=== PATIENT | male | born 1940 | race Caucasian/White ===

== ENCOUNTER 2017-03-07 15:41 | Emergency (ER) | payer MEDICARE, OTHER ==
[~2017-03-07] VITALS: Ht 182.9 cm; Wt 106.6 kg
[2017-03-07 19:24] VITALS: BP 159/81
== END 2017-03-07 19:40 | disposition home or self-care (01) ==
LOC: ER 15:48
DX: S50.11XA Contusion of right forearm, initial encounter (principal); M25.511 Pain in right shoulder; K21.9 Gastro-esophageal reflux disease without esophagitis; I10 Essential (primary) hypertension; W19.XXXA Unspecified fall, initial encounter; Y93.89 Activity, other specified; Y99.8 Other external cause status; Y92.89 Other specified places as the place of occurrence of the external cause
CPT/HCPCS: 73030; 73090